=== PATIENT | male | born 1955 | race Caucasian/White ===

== ENCOUNTER 2016-05-14 12:22 | Emergency (ER) | payer MEDICARE, MEDICAID ==
[2016-05-14] MEDS ORDERED: Aspirin Low Dose CHEW TAB* 81 MG PO ONE (13:09)
[2016-05-14 13:22] LABS: Hematocrit 44 % (42-52); Hemoglobin 14.6 g/dl (14.0-18.0); Mean Corpuscular HGB Conc 34 g/dl (31-36); Mean Corpuscular Hemoglobin 31 pg (27-31); Mean Corpuscular Volume 92 fL (80-94); Mean Platelet Volume 8 um3 (7.4-10.4); Red Blood Count 4.71 10^6/ul (4.0-5.4); Red Cell Distribution Width 13 % (10.5-15); White Blood Count 10.4 10^3/ul (3.5-10.8)
[2016-05-14] MEDS ORDERED: traMADol TAB* 50 MG PO ONE (13:26)
[2016-05-14 13:35] LABS: Albumin 4.2 g/dL (3.2-5.2); BUN/Creatinine Ratio 9.5 (8-20); Calcium 9.7 mg/dL (8.6-10.3); EGFR African American 120.3 (>60); EGFR Non-African American 93.5 (>60); Globulin 3.3 g/dL (2-4); Magnesium 2.2 mg/dL (1.9-2.7); Potassium 3.6 mmol/L (3.5-5.0); Total Bilirubin 0.5 mg/dL (0.2-1.0); Total Protein 7.5 g/dL (6.4-8.9)
[2016-05-14 13:37] LABS: Troponin I 0.01 ng/mL (<0.04)
--- NOTE | 2016-05-14 13:45 | RAD ---
HISTORY: Pneumonia, CHF COMPARISONS: January 26, 2010 VIEWS:1: Single frontal portable view of the chest at 1:15 PM FINDINGS: LINES AND TUBES: None. CARDIOMEDIASTINAL SILHOUETTE: The cardiomediastinal silhouette is normal for portable technique. PLEURA: The costophrenic angles are sharp. No pleural abnormalities are noted. LUNG PARENCHYMA: The lungs are clear. ABDOMEN: The upper abdomen is clear. There is no subphrenic gas. BONES AND SOFT TISSUES: Degenerative changes are noted along the spine. IMPRESSION: NO ACTIVE CARDIOPULMONARY DISEASE.
[2016-05-14 14:12] LABS: TSH (Thyroid Stimulating Horm) 0.32 mcIU/mL (0.34-5.60)
[2016-05-14 14:55] VITALS: BP 141/81
--- NOTE | 2016-05-16 23:27 | ED ---
Arleen Yoon Erika, scribed for Cory García MD on 05/14/16 at 1439 . HPI Chest Pain - HPI Summary HPI Summary: Patient is a 60-year-old male presenting to the ED with a CC of chest discomfort. Patient reports that for the past month, he has had chest discomfort that has been worsening. Patient reports "convulsions" last night. Today, when the patient woke up, he had a sharp pain in his left anterior chest. Pain is aggravated by breathing and palpation. Now, the severity has decreased and he describes is at a discomfort. Patient states he does not take any medication, and was seen by his PCP Jerman Mane in February 2016, and was scheduled for another appointment in March 2016 but did not go. He cannot state why he needed two appointments. Pt states he would like to take HTN medication, and that last Tuesday his BP was 180/100. He does not take daily aspirin. - History of Current Complaint Chief Complaint: EDDysrhythmPalp Time Seen by Provider: 05/14/16 13:12 Hx Obtained From: Patient Onset/Duration: Started Weeks Ago - 1 month, Atraumatic, Still Present Timing: Intermittent Initial Severity: Moderate Current Severity: Mild Pain Intensity: 1 Pain Scale Used: 0-10 Numeric Chest Pain Location: Left Anterior Chest Pain Radiates: No Character: Sharp/Stabbing Aggravating Factor(s): Deep Breaths, Other: - palpation - Allergy/Home Medications Allergies/Adverse Reactions: Allergies Allergy/AdvReac Type Severity Reaction Status Date / Time No Known Allergies Allergy Verified 06/08/12 09:34 PMH/Surg Hx/FS Hx/Imm Hx Endocrine/Hematology History: Denies: Hx Diabetes, Hx Thyroid Disease Respiratory History: Denies: Hx Asthma, Hx Chronic Obstructive Pulmonary Disease (COPD) GI History: Denies: Hx Ulcer - Surgical History Surgery Procedure, Year, and Place: hernia repair 1994. facial 2008 Infectious Disease History: Denies: Hx Hepatitis, Hx Human Immunodeficiency Virus (HIV), Traveled Outside the [place] in Last 30 Days - Family History Known Family History: Positive: Other - [place] - Social History Occupation: Disabled Lives: Alone Hx Substance Use: No Substance Use Type: Reports: None Review of Systems Constitutional: Other - "convulsions" last night Negative: Fever Positive: Chest Pain All Other Systems Reviewed And Are Negative: Yes Physical Exam Triage Information Reviewed: Yes Vital Signs On Initial Exam: Initial Vitals Temp Pulse Resp BP Pulse Ox 98.4 F 80 20 106/62 98 05/14/16 13:01 05/14/16 13:01 05/14/16 13:01 05/14/16 13:01 05/14/16 13:01 Vital Signs Reviewed: Yes Appearance: Positive: Well-Appearing, No Pain Distress Skin: Positive: Warm, Skin Color Reflects Adequate Perfusion, Dry Head/Face: Positive: Normal Head/Face Inspection Eyes: Positive: Normal ENT: Positive: Normal ENT inspection Neck: Positive: Supple, Nontender Respiratory/Lung Sounds: Positive: Clear to Auscultation, Breath Sounds Present Cardiovascular: Positive: RRR Abdomen Description: Positive: Nontender, Soft Bowel Sounds: Positive: Present Musculoskeletal: Positive: Other - Mild tenderness in his lower left anterior chest wall Neurological: Positive: Normal Psychiatric: Positive: Affect/Mood Appropriate Diagnostics - Vital Signs Vital Signs Temp Pulse Resp BP Pulse Ox 05/14/16 13:01 98.4 F 80 20 106/62 98 - Laboratory Lab Results: Lab Results 05/14/16 05/14/16 05/14/16 Range/Units 13:10 13:10 13:10 WBC 10.4 (3.5-10.8) 10^3/ul RBC 4.71 (4.0-5.4) 10^6/ul Hgb 14.6 (14.0-18.0) g/dl Hct 44 (42-52) % MCV 92 (80-94) fL MCH 31 (27-31) pg MCHC 34 (31-36) g/dl RDW 13 (10.5-15) % Plt Count 286 (150-450) 10^3/ul MPV 8 (7.4-10.4) um3 Neut % (Auto) 60.7 (38-83) % Lymph % (Auto) 25.6 (25-47) % Fallon % (Auto) 10.8 H (1-9) % Eos % (Auto) 1.8 (0-6) % Baso % (Auto) 1.1 (0-2) % Absolute Neuts (auto) 6.3 (1.5-7.7) 10^3/ul Absolute Lymphs (auto) 2.7 (1.0-4.8) 10^3/ul Absolute Monos (auto) 1.1 H (0-0.8) 10^3/ul Absolute Eos (auto) 0.2 (0-0.6) 10^3/ul Absolute Basos (auto) 0.1 (0-0.2) 10^3/ul Absolute Nucleated RBC 0 10^3/ul Nucleated RBC % 0 Sodium 137 (133-145) mmol/L Potassium 3.6 (3.5-5.0) mmol/L Chloride 105 (101-111) mmol/L Carbon Dioxide 24 (22-32) mmol/L Anion Gap 8 (2-11) mmol/L BUN 8 (6-24) mg/dL Creatinine 0.84 (0.67-1.17) mg/dL Est GFR ( Amer) 120.3 (>60) Est GFR (Non-Af Amer) 93.5 (>60) BUN/Creatinine Ratio 9.5 (8-20) Glucose 80 (70-100) mg/dL Lactic Acid 1.9 (0.5-2.0) mmol/L Calcium 9.7 (8.6-10.3) mg/dL Magnesium 2.2 (1.9-2.7) mg/dL Total Bilirubin 0.50 (0.2-1.0) mg/dL AST 25 (13-39) U/L ALT 40 (7-52) U/L Alkaline Phosphatase 70 (34-104) U/L Troponin I 0.01 (<0.04) ng/mL B-Natriuretic Peptide ( - 100) pg/mL Total Protein 7.5 (6.4-8.9) g/dL Albumin 4.2 (3.2-5.2) g/dL Globulin 3.3 (2-4) g/dL Albumin/Globulin Ratio 1.3 (1-3) TSH 0.32 L (0.34-5.60) mcIU/mL 05/14/16 Range/Units 13:10 WBC (3.5-10.8) 10^3/ul RBC (4.0-5.4) 10^6/ul Hgb (14.0-18.0) g/dl Hct (42-52) % MCV (80-94) fL MCH (27-31) pg MCHC (31-36) g/dl RDW (10.5-15) % Plt Count (150-450) 10^3/ul MPV (7.4-10.4) um3 Neut % (Auto) (38-83) % Lymph % (Auto) (25-47) % Fallon % (Auto) (1-9) % Eos % (Auto) (0-6) % Baso % (Auto) (0-2) % Absolute Neuts (auto) (1.5-7.7) 10^3/ul Absolute Lymphs (auto) (1.0-4.8) 10^3/ul Absolute Monos (auto) (0-0.8) 10^3/ul Absolute Eos (auto) (0-0.6) 10^3/ul Absolute Basos (auto) (0-0.2) 10^3/ul Absolute Nucleated RBC 10^3/ul Nucleated RBC % Sodium (133-145) mmol/L Potassium (3.5-5.0) mmol/L Chloride (101-111) mmol/L Carbon Dioxide (22-32) mmol/L Anion Gap (2-11) mmol/L BUN (6-24) mg/dL Creatinine (0.67-1.17) mg/dL Est GFR ( Amer) (>60) Est GFR (Non-Af Amer) (>60) BUN/Creatinine Ratio (8-20) Glucose (70-100) mg/dL Lactic Acid (0.5-2.0) mmol/L Calcium (8.6-10.3) mg/dL Magnesium (1.9-2.7) mg/dL Total Bilirubin (0.2-1.0) mg/dL AST (13-39) U/L ALT (7-52) U/L Alkaline Phosphatase (34-104) U/L Troponin I (<0.04) ng/mL B-Natriuretic Peptide 34 ( - 100) pg/mL Total Protein (6.4-8.9) g/dL Albumin (3.2-5.2) g/dL Globulin (2-4) g/dL Albumin/Globulin Ratio (1-3) TSH (0.34-5.60) mcIU/mL Result Diagrams: 05/14/16 13:10 05/14/16 13:10 Lab Statement: Any lab studies that have been ordered have been reviewed, and results considered in the medical decision making process. - Radiology CXR Radiology Interpretation Completed By: Radiologist - IMPRESSION: NO ACTIVE CARDIOPULMONARY DISEASE. - EKG 12:24 Cardiac Rate: NL - at 79 bpm EKG Rhythm: Sinus Rhythm Re-Evaluation - Re-Evaluation First Eval Re-Evaluation Time: 15:33 Comment: Patient declines staying for repeat troponin at 16:00 Chest Pain Course/Dx - Course Course Of Treatment: Mr. Saavedra presented with a chest pain that seemed musculoskeletal. His W/U was partially complete when he insisted on leaving. His labs returned normal and he would not stay for a second trop. - Diagnoses Provider Diagnoses: Chest pain Discharge - Discharge Plan Condition: Stable Disposition: HOME Patient Education Materials: Chest Pain (ED) Referrals: Jerman Mane NP [Primary Care Provider] - 2 Days The documentation as recorded by the Arleen cox Erika accurately reflects the service I personally performed and the decisions made by me, Cory García MD.
== END 2016-05-14 15:42 | disposition home or self-care (01) ==
LOC: ED 12:22
DX: R07.9 Chest pain, unspecified (principal); I10 Essential (primary) hypertension
CPT/HCPCS: 36415; 71010; 80053; 83605; 83735; 83880; 84443; 84484; 85025; 93005; 99283; A9270-GY

== ENCOUNTER 2016-05-18 08:26 | Emergency (ER) | payer MEDICARE, MEDICAID ==
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
[2016-05-18] MEDS ORDERED: Ibuprofen TAB* 600 MG PO ONE (09:50)
[2016-05-18] MEDS ORDERED: Tetanus-Diphtheria* SYRINGE IM ONE (09:56)
[2016-05-18] MEDS ORDERED: Amoxicillin/Clavulanate TAB* 875 MG PO ONE (10:18)
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
[2016-05-18 10:53] VITALS: BP 148/92
== END 2016-05-18 10:52 | disposition home or self-care (01) ==
LOC: ED 08:26
DX: S01.91XA Laceration without foreign body of unspecified part of head, initial encounter (principal); S06.0X9A Concussion with loss of consciousness of unspecified duration, initial encounter; J32.9 Chronic sinusitis, unspecified; S09.90XA Unspecified injury of head, initial encounter; V49.9XXA Car occupant (driver) (passenger) injured in unspecified traffic accident, initial encounter; Y93.9 Activity, unspecified; Y92.9 Unspecified place or not applicable; Y99.9 Unspecified external cause status
CPT/HCPCS: 12002; 70450; 70486; 72125; 90714; 96372; 99282; A9270-GY

== ENCOUNTER → 2017-02-23 10:17 | Emergency (ER) | payer MEDICARE, MEDICAID ==
[~2017-02-23 10:17] MED LIST: HYDROcodone/ACETAMIN 5-325 MG* 1 TAB PO ONE
[2017-02-23 10:23] VITALS: BP 154/92
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
--- NOTE | 2017-02-23 13:09 | ED ---
Lower Extremity - HPI Summary HPI Summary: Patient presents to the ED with CC of left ankle pain s/p fall with inversion to the ankle. 01/04 pain. + ecchymosis and swelling. Patient fell yesterday in the mud and inverted his ankle. Denies other injuries. States ROM if limited and he is unable to ambulate. However, he also states he walked here. Pain has been on chronic opioids for "generalized pain" x 4 months but last dose last month. - History of Current Complaint Chief Complaint: EDExtremityLower Stated Complaint: LT ANKLE XRAY PER DR Time Seen by Provider: 02/23/17 10:26 Hx Obtained From: Patient Mechanism Of Injury: Twisted Onset of Pain: Immediate Onset/Duration: Hours Severity Initially: Severe Severity Currently: Severe Pain Intensity: 9 Pain Scale Used: 0-10 Numeric Character Of Pain: Aching Associated Signs And Symptoms: Positive: Swelling, Bruising Aggravating Factor(s): Standing, Ambulation Alleviating Factor(s): Nothing Able to Bear Weight: No - Risk Factors Gout Risk Factors: Male DVT Risk Factors: Negative Septic Arthritis Risk Factor: Negative - Allergies/Home Medications Allergies/Adverse Reactions: Allergies Allergy/AdvReac Type Severity Reaction Status Date / Time No Known Allergies Allergy Verified 06/08/12 09:34 PMH/Surg Hx/FS Hx/Imm Hx Previously Healthy: Yes Endocrine/Hematology History: Denies: Hx Diabetes, Hx Thyroid Disease Cardiovascular History: Reports: Hx Hypertension Respiratory History: Denies: Hx Asthma, Hx Chronic Obstructive Pulmonary Disease (COPD) GI History: Denies: Hx Ulcer - Surgical History Surgery Procedure, Year, and Place: hernia repair 1994. facial 2008 - Immunization History Hx Pertussis Vaccination: No Immunizations Up to Date: Unable to Obtain/Confirm Infectious Disease History: No Infectious Disease History: Denies: Hx Hepatitis, Hx Human Immunodeficiency Virus (HIV), Traveled Outside the [place] in Last 30 Days - Family History Known Family History: Positive: Other - [place] - Social History Occupation: Unemployed Lives: With Family Alcohol Use: Rare Alcohol Amount: 1 drink Hx Substance Use: No Substance Use Type: Reports: None Hx Tobacco Use: Yes Smoking Status (MU): Current Every Day Smoker Review of Systems Constitutional: Negative Negative: Fever, Chills, Fatigue Eyes: Negative Cardiovascular: Negative Respiratory: Negative Positive: Arthralgia Positive: Bruising Neurological: Negative All Other Systems Reviewed And Are Negative: Yes Physical Exam Triage Information Reviewed: Yes Vital Signs On Initial Exam: Initial Vitals Temp Pulse Resp BP Pulse Ox 97.9 F 93 18 154/92 98 02/23/17 10:20 02/23/17 10:20 02/23/17 10:20 02/23/17 10:20 02/23/17 10:20 Vital Signs Reviewed: Yes Appearance: Positive: Well-Appearing, Well-Nourished Skin: Positive: Warm, Skin Color Reflects Adequate Perfusion, Other - ecchymosis to the left lateral ankle Neck: Positive: Supple, No Lymphadenopathy Respiratory/Lung Sounds: Positive: Clear to Auscultation, Breath Sounds Present Cardiovascular: Positive: Normal, RRR, Pulses are Symmetrical in both Upper and Lower Extremities Musculoskeletal: Positive: Other - Thorough physical exam was performed, focusing on ankle special tests. Pain on palpation over lateral aspect and superior aspect of ankle over ATFL and deltoid ligaments. No pain on palpation over medial side. Due to patient pain around injury, physical exam was limited. Unable to perform anterior drawer test or talar tilt test d/t pain. Smith test negative. Limited ROM. Dorsiflexion, great toe extension and plantar flexion intact however limited. No pain on palpation over medial or lateral lower extremity. No pain with knee flexion. Pulses intact bilaterally. No temperature change or pallor noted bilaterally. Ecchymosis and swelling noted on lateral aspect. No lesion or disruption of skin is seen. Unable to bear weight. Neurological: Positive: Sensory/Motor Intact, Alert, Oriented to Person Place, Time, Speech Normal Psychiatric: Positive: Normal AVPU Assessment: Alert - Gratis Coma Scale Coma Scale Total: 15 Diagnostics - Vital Signs Vital Signs Temp Pulse Resp BP Pulse Ox 02/23/17 10:20 97.9 F 93 18 154/92 98 - Laboratory Lab Statement: Any lab studies that have been ordered have been reviewed, and results considered in the medical decision making process. Lower Extremity Course/Dx - Course Course Of Treatment: Based on [place] [facility] Rules, patient sent to imaging. Xray shows marquez 2 fracture with no additional findings. Soft tissue swelling noted over the lateral aspect of the ankle. Medial and lateral distal lower extremity without pain and x-rays show no widening of the ankle joint regarding low suspicion for Maisonneuve fx. Ankle was zach wrapped to patient comfort to allow for immobilization for this period of time. Crutches given. Patient given orthopedic follow up in 5-7 days. Encouraged Ibuprofen 600mg three times daily with meals for pain. Return precautions given. Educated patient regarding ankle injuries and healing time and the possibility of further evaluation and imaging as orthopedist sees fit. - Diagnoses Provider Diagnoses: Ankle fracture Discharge - Discharge Plan Condition: Stable Disposition: HOME Patient Education Materials: Ankle Fracture (ED) Referrals: Dat Martinez MD [Primary Care Provider] - Additional Instructions: Crutches for ambulation given. Ibuprofen 600mg three times daily with meals for pain. Follow up with orthopedic physician in 5-7 days. If numbness, tingling, decreased sensation, increased pain, temperature changes or pallor noted in toes, come back to ER immediately. Protect the area. For your comfort level, do not bear weight, pull or push until you can injury is somewhat healed. This may involve the need for immobilization or crutches for a period of time. Rest the involved area, but not too long. You may need to be off your injury for some time to allow for healing, however excessive immobilization of joints can lead to stiffness and delay healing time. Early mobilization is encouraged if it is pain-free. Ice. Not directly on the skin. Cover with a towel. Apply ice no more than 30 minutes at a time Compression: You may use and keep an zach wrap bandage over the injury to decrease swelling. Again, this should be limited and be taken off periodically to encourage early range of motion and mobilization.
== END | disposition home or self-care (01) ==
LOC: ED 10:17
DX: S82.892A Other fracture of left lower leg, initial encounter for closed fracture (principal); W19.XXXA Unspecified fall, initial encounter; Y93.9 Activity, unspecified; Y92.9 Unspecified place or not applicable; F17.210 Nicotine dependence, cigarettes, uncomplicated
CPT/HCPCS: 99282

== ENCOUNTER 2017-08-05 07:36 | Day surgery (SDC) | payer MEDICARE, MEDICAID ==
[~2017-08-05 07:36] MED LIST changes: +Buffered Lidocaine 0.9% SYRIN* 5 ML/SYR SYRINGE INTRADERM ONE; +Famotidine IV* 10 MG/ML 2 ML (20 mg) IV ONE; -HYDROcodone/ACETAMIN 5-325 MG* 1 TAB PO ONE
[2017-08-05] MEDS ORDERED: Midazolam* 1 MG/ML 5 ML VIAL (5 MG) ONE (09:08)
[2017-08-05] MEDS ORDERED: fentaNYL* 50 MCG/ML 2 ML VIAL (100 MCG VIAL) ONE (09:22)
[2017-08-05] MEDS ORDERED: Propofol* 10 MG/ML 20 ML BTL IV PUSH ONE (09:32)
[2017-08-05] MEDS ORDERED: Ondansetron INJ* 2 MG/ML VIAL IV PRN (09:41)
[2017-08-05] MEDS ORDERED: Naloxone* 0.4 MG/ML 1 ML VIAL IV PRN (09:41)
[2017-08-05] MEDS ORDERED: fentaNYL* 50 MCG/ML 2 ML VIAL (100 MCG VIAL) IV PRN (09:41)
[2017-08-05] MEDS ORDERED: Losartan TAB* 25 MG PO ONE (12:00)
[2017-08-05 12:09] VITALS: BP 159/106
--- NOTE | 2017-08-06 08:37 | PRO ---
CC: Dr. Martinez; Umu Carrasco DO GASTROENTEROLOGY OPERATIVE REPORT: DATE OF PROCEDURE: 08/05/17 OPERATIVE PROCEDURE: Colonoscopy to terminal ileum. PUMP ERECTOR HELPER: Umu Carrasco DO ANESTHESIA: Monitored anesthesia care. HISTORY OF PRESENT ILLNESS: Rodriguez is a pleasant 62-year-old gentleman, who presents today for his initial screening colonoscopy. He denies any personal gastrointestinal complaints or family history of colon cancer. PREOPERATIVE DIAGNOSES: 1. Low-risk screening colonoscopy. POSTOPERATIVE DIAGNOSES: 1. Normal-appearing terminal ileum. 2. Diverticulosis of the sigmoid colon, descending colon, transverse colon, ascending colon, and cecum. 3. Few 2-mm sessile rectal polyps with polypectomies. 4. Moderate sized non-bleeding internal hemorrhoids on retroflexion. 5. Fair colonoscopy preparation. RECOMMENDATION: 1. Timing of repeat colonoscopy will be determined upon review of biopsy results. DESCRIPTION OF PROCEDURE: Colonoscopy was explained in detail to the patient. The risks, benefits, complications, alternatives, and possibilities of missed lesions were explained and understood. Complications included but were not limited to reaction to anesthesia, aspiration, increased risk of bleeding and perforation. All questions were answered. The patient demonstrated understanding of the conversation. Informed consent was obtained. Next, the patient was brought to the endoscopy suite, placed in the left lateral recumbent position where blood pressure, cardiac, and oxygen monitors were applied. The patient was found to be a fit candidate for moderate anesthesia. After adequate IV sedation was achieved, a digital rectal exam was performed, which revealed normal sphincter tone, no palpable masses were appreciated. Next, the standard adult Olympus colonoscope was inserted through the rectum, maneuvered all the way to the cecal base where the ileocecal valve and the appendiceal orifice were identified and photographed. Next, the terminal ileum was intubated and was normal appearing. Subsequently, the colonoscope was withdrawn in a fashion that allowed adequate visualization of bowel. Overall the patient's colonoscopy preparation was fair. Aggressive irrigation and suctioning was performed in order to adequately visualize the mucosa. The overall submucosal vasculature pattern was normal appearing. There were [id number] mouthed diverticula scattered in the cecum, ascending colon, transverse colon, descending colon, and sigmoid colon. Entry into the rectum revealed a few 2-mm sessile polyps. These were all removed via jumbo cold forceps. Hemostasis was seen. On retroflexion, the patient had moderate size non-bleeding internal hemorrhoids. Air was then removed from the patient. Colonoscope was removed from the patient. The patient tolerated the procedure well. There were no immediate complications. After a period of observation, the patient was discharged home in stable condition. Thank you, Dr. Martinez, for allowing us to participate in the care of your patient. If you should have any further questions or concerns, please do not hesitate to contact us. [id number]/[facility] #: [id number] JULY
== END 2017-08-05 12:00 | disposition home or self-care (01) ==
LOC: OR 07:36
PROVIDERS: ATTEND Internal Medicine Gastroenterology
DX: Z12.11 Encounter for screening for malignant neoplasm of colon (principal); K62.1 Rectal polyp; K57.30 Diverticulosis of large intestine without perforation or abscess without bleeding; F20.9 Schizophrenia, unspecified; I10 Essential (primary) hypertension; F17.210 Nicotine dependence, cigarettes, uncomplicated; F11.11 Opioid abuse, in remission; M25.50 Pain in unspecified joint; F41.9 Anxiety disorder, unspecified; K64.8 Other hemorrhoids
CPT/HCPCS: 88305; A9270-GY; J2250; J2704; J3010

== ENCOUNTER 2017-10-21 16:07 | Emergency (ER) | payer MEDICARE, MEDICAID ==
[2017-10-21 16:56] VITALS: BP 134/87
--- NOTE | 2017-10-21 18:30 | UC ---
UC Dental HPI - History of Current Complaint Chief Complaint: UCDentalProblem Stated Complaint: DENTAL COMPLAINT Time Seen by Provider: 10/21/17 18:16 Pain Intensity: 9 - Allergies/Home Medications Allergies/Adverse Reactions: Allergies Allergy/AdvReac Type Severity Reaction Status Date / Time No Known Allergies Allergy Verified 10/21/17 16:57 PMH/Surg Hx/FS Hx/Imm Hx - Surgical History Surgical History: Yes Surgery Procedure, Year, and Place: Hernia repair 1994. Facial and jaw surgery 2008. Teeth Extraction - Family History Known Family History: Positive: Other - [place] - Social History Alcohol Use: Occasionally Alcohol Amount: 1 drink Substance Use Type: Prescribed Substance Use Comment - Amount & Last Used: patient denies, does have history of cocaine and heroine abuse Smoking Status (MU): Heavy Every Day Tobacco Smoker Amount Used/How Often: smoking since 22 years old, 1ppd Have You Smoked in the Last Year: Yes Physical Exam Vital Signs: Initial Vital Signs Temp 98.8 F 10/21/17 16:53 Pulse 82 10/21/17 16:53 Resp 12 10/21/17 16:53 BP 134/87 10/21/17 16:53 Pulse Ox 98 10/21/17 16:53 Discharge - Sign-Out/Discharge Documenting (check all that apply): Patient Departure - Discharge Plan Condition: Stable Disposition: HOME Prescriptions: Acetaminop/Codeine 30 MG TAB* [Tylenol/Codeine 30 MG TAB*] 1 tab PO Q6H PRN #12 tab MDD 4 PRN Reason: pain Chlorhexidine MW 0.12% 473ML* [Peridex Mouth Wash 0.12%*] 15 ml .SEE ORDER BID # 473 ml Clindamycin Cap(NF) [Clindamycin Cap 300 mg Cap(NF)] 300 mg PO Q6H #40 cap Patient Education Materials: Dental Abscess (ED) Referrals: Dat Martinez MD [Primary Care Provider] - 3 Days Additional Instructions: to have abscess rechecked in right upper side of mouth - Billing Disposition and Condition Condition: STABLE Disposition: Home
== END 2017-10-21 18:54 | disposition home or self-care (01) ==
LOC: UCEAST 16:07
DX: K08.89 Other specified disorders of teeth and supporting structures (principal); F17.210 Nicotine dependence, cigarettes, uncomplicated
CPT/HCPCS: 99212; G0463

== ENCOUNTER → 2018-01-25 09:56 | Emergency (ER) | payer MEDICARE, MEDICAID ==
[~2018-01-25 09:56] MED LIST changes: -Buffered Lidocaine 0.9% SYRIN* 5 ML/SYR SYRINGE INTRADERM ONE; -Famotidine IV* 10 MG/ML 2 ML (20 mg) IV ONE; +Iohexol 300* (CONTRAST) 10 ML SDV IV ONE; +Mouth Piece, Nicotine* 1 EACH CARTRIDGE INH PRN; +Nicotine Inhaler* 10 MG AMP INH ONE
[2018-01-25 12:34] LABS: ABS Basophils 0 10^3/ul (0-0.2); ABS Eosinophils 0.1 10^3/ul (0-0.6); ABS Monocytes 0.7 10^3/ul (0-0.8); ABS Neutrophils 6.2 10^3/ul (1.5-7.7); ABS Nucleated RBC 0 10^3/ul; Eosinophil % 1.4 % (0-6); Hematocrit 43 % (42-52); Hemoglobin 14.4 g/dl (14.0-18.0); Lymphocyte % 12.9 % (25-47); Mean Corpuscular HGB Conc 34 g/dl (31-36); Mean Corpuscular Hemoglobin 32 pg (27-31); Mean Corpuscular Volume 94 fL (80-94); Mean Platelet Volume 8.1 um3 (7.4-10.4); Nucleated Red Blood Cells % 0.2; Platelet Count 256 10^3/ul (150-450); Red Blood Count 4.57 10^6/ul (4.00-5.40); Red Cell Distribution Width 13 % (10.5-15); White Blood Count 8.1 10^3/ul (3.5-10.8)
[2018-01-25 12:55] LABS: EGFR Non-African American 71.8 (>60)
--- NOTE | 2018-01-25 14:23 | RAD ---
HISTORY: facial abscess, right COMPARISONS: May 18, 2016 TECHNIQUE: Multiple contiguous axial CT scans were obtained of the face with intravenous contrast, with coronal and sagittal multiplanar reformations. FINDINGS: BONES: The patient is status post internal fixation of the right anterior maxilla there are chronic appearing fractures of the maxilla bilaterally. There are chronic appearing nasal bone fractures. ORBITS: The globes are round. The optic nerves are symmetric. The extraocular musculature is normal. There is no post septal or intraconal inflammatory change. There is no retrobulbar hematoma. PARANASAL SINUSES: There is desiccation mucosal thickening of the right maxillary sinus, ethmoid air cells, maxillary sinuses bilaterally. BRAIN AND SOFT TISSUE: There is a peripherally enhancing loculated fluid collection that extends from the skin surface to the fixation plate along the right maxilla. There is associated subcutaneous emphysema. This measures approximately 1.8 x 0.8 x 1.3 cm in size. This is new when compared to the previous examination. There is a 0.5 cm nodule of the left thyroid. OTHER: None. IMPRESSION: THERE IS A PERIPHERALLY ENHANCING LOCULATED FLUID COLLECTION EXTENDING FROM THE SKIN TO THE RIGHT ANTERIOR MAXILLA ALONG THE FIXATION PLATE. THIS IS CONSISTENT WITH AN ABSCESS/SINUS TRACT. GIVEN THE CLOSE CONTIGUITY OF THE ABSCESS/SINUS TRACT TO THE BONE AND FIXATION PLATE, THIS IS CONCERNING FOR OSTEOMYELITIS AND/OR INFECTED PROSTHESIS
[2018-01-25 15:09] VITALS: BP 171/110
--- NOTE | 2018-01-25 15:16 | ED ---
Skin Complaint - HPI Summary HPI Summary: Pt. is a 62-year-old male who presents emergency department for a painful lump to his right cheek times one week. Patient states that he noticed a small red bump on his face about a week ago that is progressively got larger. Denies drainage. Denies fever, chills, nausea, vomiting. Past medical history of psychiatric disorders. Past medical history of facial fractures with internal fixation. Area is tender and touching it makes symptoms worse. Rest makes symptoms better. Denies drug use. - History of Current Complaint Chief Complaint: EDRashSkinAbscess Time Seen by Provider: 01/25/18 11:52 Stated Complaint: FACIAL SWELLING Hx Obtained From: Patient Pain Intensity: 10 - Allergy/Home Medications Allergies/Adverse Reactions: Allergies Allergy/AdvReac Type Severity Reaction Status Date / Time No Known Allergies Allergy Verified 01/25/18 10:26 PMH/Surg Hx/FS Hx/Imm Hx Previously Healthy: Yes Endocrine/Hematology History: Denies: Hx Diabetes, Hx Thyroid Disease Cardiovascular History: Reports: Hx Hypertension Denies: Other Cardiovascular Problems/Disorders Respiratory History: Denies: Hx Asthma, Hx Chronic Obstructive Pulmonary Disease (COPD), Other Respiratory Problems/Disorders GI History: Reports: Other GI Disorders - colonscopy for screening Denies: Hx Ulcer History: Denies: Hx Renal Disease, Other Problems/Disorders Musculoskeletal History: 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 Facial and jaw surgery 2008. Teeth Extraction Hx Anesthesia Reactions: No Infectious Disease History: No Infectious Disease History: Denies: Hx Hepatitis, Hx Human Immunodeficiency Virus (HIV), Traveled Outside the US in Last 30 Days - Family History Known Family History: Positive: Other - [place] - Social History Occupation: Disabled Lives: Alone Alcohol Use: Weekly Alcohol Amount: 2-3 times weekly Hx Substance Use: No Substance Use Type: Reports: Marijuana Substance Use Comment - Amount & Last Used: patient denies, does have history of cocaine and heroine abuse Hx Tobacco Use: Yes Smoking Status (MU): Heavy Every Day Tobacco Smoker Amount Used/How Often: smoking since 22 years old, 1ppd Have You Smoked in the Last Year: Yes Review of Systems Constitutional: Negative Negative: Fever, Chills Eyes: Negative ENT: Negative Cardiovascular: Negative Respiratory: Negative Gastrointestinal: Negative Negative: Vomiting, Nausea Positive: Other - Facial swelling and pain Neurological: Negative All Other Systems Reviewed And Are Negative: Yes Physical Exam Triage Information Reviewed: Yes Vital Signs On Initial Exam: Initial Vitals Temp Pulse Resp BP Pulse Ox 98.1 F 102 16 178/97 94 01/25/18 10:24 01/25/18 10:24 01/25/18 10:24 01/25/18 10:24 01/25/18 10:24 Vital Signs Reviewed: Yes Appearance: Positive: No Pain Distress - Pt. standing in room, very anxious. Nontoxic appearing. Skin: Positive: Warm, Dry Head/Face: Positive: Other - Roughly 3cm area of induration noted over the right maxillary region. Area is scabbed over. No drainage. No surrouding erythema. Eyes: Positive: Normal, EOMI, ALAN, Conjunctiva Clear Neck: Positive: Supple, Nontender, No Lymphadenopathy. Negative: Nuchal Rigidity Neurological: Positive: Normal, CN Intact II-III Psychiatric: Positive: Affect/Mood Appropriate Diagnostics - Vital Signs Vital Signs Temp Pulse Resp BP Pulse Ox 01/25/18 10:24 98.1 F 102 16 178/97 94 - Laboratory Lab Results: Lab Results 01/25/18 01/25/18 Range/Units 12:18 12:18 WBC 8.1 (3.5-10.8) 10^3/ul RBC 4.57 (4.00-5.40) 10^6/ul Hgb 14.4 (14.0-18.0) g/dl Hct 43 (42-52) % MCV 94 (80-94) fL MCH 32 H (27-31) pg MCHC 34 (31-36) g/dl RDW 13 (10.5-15) % Plt Count 256 (150-450) 10^3/ul MPV 8.1 (7.4-10.4) um3 Neut % (Auto) 77.0 (38-83) % Lymph % (Auto) 12.9 L (25-47) % [place] % (Auto) 8.3 H (0-7) % Eos % (Auto) 1.4 (0-6) % Baso % (Auto) 0.4 (0-2) % Absolute Neuts (auto) 6.2 (1.5-7.7) 10^3/ul Absolute Lymphs (auto) 1.0 (1.0-4.8) 10^3/ul Absolute Monos (auto) 0.7 (0-0.8) 10^3/ul Absolute Eos (auto) 0.1 (0-0.6) 10^3/ul Absolute Basos (auto) 0 (0-0.2) 10^3/ul Absolute Nucleated RBC 0 10^3/ul Nucleated RBC % 0.2 Sodium 141 (135-145) mmol/L Potassium 4.7 (3.5-5.0) mmol/L Chloride 108 (101-111) mmol/L Carbon Dioxide 25 (22-32) mmol/L Anion Gap 8 (2-11) mmol/L BUN 11 (6-24) mg/dL Creatinine 1.05 (0.67-1.17) mg/dL Est GFR ( Amer) 86.9 (>60) Est GFR (Non-Af Amer) 71.8 (>60) BUN/Creatinine Ratio 10.5 (8-20) Glucose 105 H (70-100) mg/dL Calcium 9.9 (8.6-10.3) mg/dL Total Bilirubin 0.70 (0.2-1.0) mg/dL AST 28 (13-39) U/L ALT 32 (7-52) U/L Alkaline Phosphatase 109 H (34-104) U/L Total Protein 7.8 (6.4-8.9) g/dL Albumin 4.4 (3.2-5.2) g/dL Globulin 3.4 (2-4) g/dL Albumin/Globulin Ratio 1.3 (1-3) Result Diagrams: 01/25/18 12:18 01/25/18 12:18 Lab Statement: Any lab studies that have been ordered have been reviewed, and results considered in the medical decision making process. Course/Dx - Course Course Of Treatment: Presenting with probable abscess to face. He is afebrile with stable vital signs. Blood work and CT scan were ordered for further evaluation. CT read per radiology: IMPRESSION: THERE IS A PERIPHERALLY ENHANCING LOCULATED FLUID COLLECTION EXTENDING FROM THE SKIN TO. THE RIGHT ANTERIOR MAXILLA ALONG THE FIXATION PLATE. THIS IS CONSISTENT WITH AN. ABSCESS/ SINUS TRACT. GIVEN THE CLOSE CONTIGUITY OF THE ABSCESS/SINUS TRACT TO THE BONE AND. FIXATION PLATE, THIS IS CONCERNING FOR OSTEOMYELITIS AND/OR INFECTED PROSTHESIS. I spoke with ENT, Dr. Waters, who reviewed the CT scan. He is concerned for possible hardware infection. He is concerned that we do not have the equipment here for surgical intervention and recommends transfer to have [facility]. Discussed with patient and he will need to be transferred with IV antibiotics and probable surgery. Patient became very anxious and states that he cannot stay in the hospital at this time. Patient did consider admission but feels as though he needs to go home to get his affairs and order. Patient has decision making capacity and wishes to sign out AGAINST MEDICAL ADVICE. I strongly advised patient that this infection can lead to and disability he is aware of this risk. Advised patient to return to the ER as soon as possible for IV antibiotics and transfer for possible surgery. Patient states to return to the ER tomorrow. Signed out AGAINST MEDICAL ADVICE. - Differential Diagnoses - Skin Complaint Differential Diagnoses: Abscess, Cellulitis - Diagnoses Provider Diagnoses: Facial abscess, Osteomyelitis Discharge - Sign-Out/Discharge Documenting (check all that apply): Patient Departure - Discharge Plan Condition: Critical Disposition: AGAINST MEDICAL ADVICE Prescriptions: Clindamycin HCl 300 mg PO Q6H #40 capsule Referrals: Mariela Romano [Medical Doctor] - Dat Martinez MD [Primary Care Provider] - Additional Instructions: YOU ARE LEAVING THE ER AGAINST MEDICAL ADVISE YOU HAVE A VERY SERIOUS INFECTION THAT NEEDS IV ANTIBIOTICS AND POSSIBLY SURGERY THIS INFECTION CAN SPREAD TO YOUR BLOOD AND KILL YOU I SPOKE WITH ENT, DR. WATERS, WHO RECOMMENDS TRANSFER TO A [facility] FOR A SPECIALIST PLEASE RETURN TO ER [facility] - Billing Disposition and Condition Condition: CRITICAL Disposition: Against Medical Advice
== END | disposition left against medical advice (07) ==
LOC: ED 09:56
DX: L02.01 Cutaneous abscess of face (principal); M86.9 Osteomyelitis, unspecified; F17.200 Nicotine dependence, unspecified, uncomplicated
CPT/HCPCS: 36415; 70487; 80053; 85025; 99282; A9270-GY; Q9967

== ENCOUNTER 2018-01-26 09:15 | Emergency (ER) | payer MEDICARE, MEDICAID ==
[2018-01-26 09:27] VITALS: BP 137/113
[2018-01-26] MEDS ORDERED: Neomycin/Polym/Bacit TOP OINT* 15 GM TOPICAL ONE (09:51)
--- NOTE | 2018-01-26 17:50 | ED ---
Skin Complaint - HPI Summary HPI Summary: Pt. is a 62 y.o male who presents to the ER requesting a wound dressing. Pt. was seen in the ER yesterday by myself for a facial infection and possible osteomyelitis and hardware infection. Pt. signed out AMA. Pt. states yesterday that he would return to ER today for transfer to higher level of care and IV antibx. Pt. state that he cannot be transferred today because he gets money tomorrow and has to go to the bank to pay his rent that is due. Pt. states that he just came in to have wound dressed. Pt. states he has been taking antibx that was rx yesterday and states that he is starting to feel better. He denies fever, chills. Symptoms are moderate in severity. Touching affected area makes sxs worse. Nothing makes sxs better. - History of Current Complaint Chief Complaint: EDGeneral Time Seen by Provider: 01/26/18 09:38 Stated Complaint: FACIAL INJURY Hx Obtained From: Patient Pain Intensity: 5 - Allergy/Home Medications Allergies/Adverse Reactions: Allergies Allergy/AdvReac Type Severity Reaction Status Date / Time No Known Allergies Allergy Verified 01/26/18 09:27 PMH/Surg Hx/FS Hx/Imm Hx Previously Healthy: Yes Endocrine/Hematology History: Denies: Hx Diabetes, Hx Thyroid Disease Cardiovascular History: Reports: Hx Hypertension Denies: Other Cardiovascular Problems/Disorders Respiratory History: Denies: Hx Asthma, Hx Chronic Obstructive Pulmonary Disease (COPD), Other Respiratory Problems/Disorders GI History: Reports: Other GI Disorders - colonscopy for screening Denies: Hx Ulcer History: Denies: Hx Renal Disease, Other Problems/Disorders Musculoskeletal History: 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 Facial and jaw surgery 2008. Teeth Extraction Hx Anesthesia Reactions: No Infectious Disease History: No Infectious Disease History: Denies: Hx Hepatitis, Hx Human Immunodeficiency Virus (HIV), Traveled Outside the [place] in Last 30 Days - Family History Known Family History: Positive: Other - [place] - Social History Occupation: Disabled Lives: Alone Alcohol Use: Weekly Alcohol Amount: 2-3 times weekly Hx Substance Use: No Substance Use Type: Reports: Marijuana Substance Use Comment - Amount & Last Used: patient denies, does have history of cocaine and heroine abuse Hx Tobacco Use: Yes Smoking Status (MU): Heavy Every Day Tobacco Smoker Amount Used/How Often: smoking since 22 years old, 1ppd Have You Smoked in the Last Year: Yes Review of Systems Constitutional: Negative Positive: Other - facial abscess All Other Systems Reviewed And Are Negative: Yes Physical Exam Triage Information Reviewed: Yes Vital Signs On Initial Exam: Initial Vitals Temp Pulse Resp BP Pulse Ox 97.4 F 110 18 137/113 98 01/26/18 09:21 01/26/18 09:21 01/26/18 09:21 01/26/18 09:21 01/26/18 09:21 Vital Signs Reviewed: Yes Appearance: Positive: Well-Appearing - Pt. sitting on bed in NAD. Very talkative Skin: Positive: Warm, Dry Head/Face: Positive: Other - Induration with overlying wound noted to the left cheek Eyes: Positive: Normal, EOMI Neck: Positive: Supple Neurological: Positive: Normal, CN Intact II-III Psychiatric: Positive: Anxious Diagnostics - Vital Signs Vital Signs Temp Pulse Resp BP Pulse Ox 01/26/18 09:21 97.4 F 110 18 137/113 98 - Laboratory Lab Statement: Any lab studies that have been ordered have been reviewed, and results considered in the medical decision making process. Course/Dx - Course Course Of Treatment: Pt. again presenting with facial abscess and infection. He is afebrile and nontoxic appearing. Pt. states he just came in for a wound dressing. It is strongly recommended to pt. to be transferred to higher level of care for iv antibx and possible surgery for likely osteo and infected hardware in face. Pt. states he understands the severity of infection but states he needs to wait till tomorrow after he gets his rent paid. Even offered pt. the possibility at trying to admit to [facility] for at least iv antibx but pt. declines. Pt. has decision making compacity and wishes to sign out AMA again. Pt. is well aware infection could lead to permenant disability and . Pt. states he will return to tomorrow for further care. - Differential Diagnoses - Skin Complaint Differential Diagnoses: Abscess, Cellulitis - Diagnoses Provider Diagnoses: Facial infection Discharge - Sign-Out/Discharge Documenting (check all that apply): Patient Departure - Discharge Plan Condition: Stable Disposition: AGAINST MEDICAL ADVICE Referrals: Dat Martinez MD [Primary Care Provider] - Additional Instructions: It was recommended you be transferred to a higher level of care to treat your facial infection You are signing out of the ER AGAINST MEDICAL ADVISE Please return to ER as soon as possible - Billing Disposition and Condition Condition: STABLE Disposition: Against Medical Advice
== END 2018-01-26 10:46 | disposition left against medical advice (07) ==
LOC: ED 09:15
DX: L02.01 Cutaneous abscess of face (principal); F17.210 Nicotine dependence, cigarettes, uncomplicated
CPT/HCPCS: 99283; A9270-GY

== ENCOUNTER 2018-01-28 08:43 | Emergency (ER) | payer MEDICARE, MEDICAID ==
--- NOTE | 2018-01-28 09:33 | ED ---
Throat Pain/Nasal Congestion - HPI Summary HPI Summary: Patient is a 62yo M who is presents to the ED for the second time in 3 days with a right cheek abscess. He states he is unsure how he obtained the abscess. He checks in today with a request for a bandage dressing change and is requesting a ride to [employer] [place] for surgery for this. He was told several days ago that he would need surgery for this as he has a piece of metal in his tooth that may be because of the issue. However he has been on clindamycin the past 2 days with significant improvement of swelling and abscess drainage. He denies any fevers, sweats, chills. He states he has been feeling otherwise well and is endorsing significant improvement. - History of Current Complaint Chief Complaint: EDGeneral Time Seen by Provider: 01/28/18 08:59 Hx Obtained From: Patient Onset/Duration: Sudden Onset Severity: Mild Associated Signs And Symptoms: Positive: Negative - Epiglottits Risk Factors Epiglottis Risk Factors: Negative - Allergies/Home Medications Allergies/Adverse Reactions: Allergies Allergy/AdvReac Type Severity Reaction Status Date / Time No Known Allergies Allergy Verified 01/26/18 09:27 PMH/Surg Hx/FS Hx/Imm Hx Previously Healthy: Yes Endocrine/Hematology History: Denies: Hx Diabetes, Hx Thyroid Disease Cardiovascular History: Reports: Hx Hypertension Denies: Other Cardiovascular Problems/Disorders Respiratory History: Denies: Hx Asthma, Hx Chronic Obstructive Pulmonary Disease (COPD), Other Respiratory Problems/Disorders GI History: Reports: Other GI Disorders - colonscopy for screening Denies: Hx Ulcer History: Denies: Hx Renal Disease, Other Problems/Disorders Musculoskeletal History: 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 Facial and jaw surgery 2008. 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 Hx Tobacco Use: Yes Smoking Status (MU): Heavy Every Day Tobacco Smoker Amount Used/How Often: smoking since 22 years old, 1ppd Have You Smoked in the Last Year: Yes Review of Systems Constitutional: Negative Negative: Fever, Chills, Fatigue, Skin Diaphoresis Negative: Dental Pain, Sore Throat, Ear Ache Negative: Palpitations, Chest Pain Negative: Shortness Of Breath, Cough Genitourinary: Negative Positive: no symptoms reported Negative: Arthralgia, Myalgia Positive: Other - R cheek abscess Neurological: Negative All Other Systems Reviewed And Are Negative: Yes Physical Exam Triage Information Reviewed: Yes Vital Signs On Initial Exam: Initial Vitals Temp Pulse Resp BP Pulse Ox 96.9 F 85 14 144/89 95 01/28/18 08:54 01/28/18 08:54 01/28/18 08:54 01/28/18 08:54 01/28/18 08:54 Vital Signs Reviewed: Yes Appearance: Positive: Well-Appearing, Well-Nourished Skin: Positive: Warm, Skin Color Reflects Adequate Perfusion, Other - R cheek abscess Head/Face: Positive: Normal Head/Face Inspection Eyes: Positive: EOMI, ALAN, Conjunctiva Clear Neck: Positive: Supple, No Lymphadenopathy Respiratory/Lung Sounds: Positive: Clear to Auscultation Cardiovascular: Positive: RRR, Pulses are Symmetrical in both Upper and Lower Extremities Musculoskeletal: Positive: Strength/ROM Intact Neurological: Positive: Speech Normal Psychiatric: Positive: Affect/Mood Appropriate AVPU Assessment: Alert Diagnostics - Vital Signs Vital Signs Temp Pulse Resp BP Pulse Ox 01/28/18 08:54 96.9 F 85 14 144/89 95 - Laboratory Lab Statement: Any lab studies that have been ordered have been reviewed, and results considered in the medical decision making process. EENT Course/Dx - Course Course Of Treatment: Patient is evaluated for right cheek abscess. The cheek abscess is approximately 3.5 cm in length and 4 cm in width with purulent drainage. No swelling visualized. No bleeding from the area. Patient is opening and closing jaw well. Denies any pain at this time. Denies any fevers , sweats, chills. Bandage is redressed and he will continue to take the clindamycin as prescribed. - Diagnoses Provider Diagnoses: Abscess, cheek Discharge - Sign-Out/Discharge Documenting (check all that apply): Patient Departure - Discharge Plan Condition: Stable Disposition: HOME Referrals: Dat Martinez MD [Medical Doctor] - Additional Instructions: Please continue to take your antibiotics as prescribed Continue warm compresses to the face Change bandage daily until oozing discontinues - Billing Disposition and Condition Condition: STABLE Disposition: Home
[2018-01-28 09:36] VITALS: BP 140/88
== END 2018-01-28 09:34 | disposition home or self-care (01) ==
LOC: ED 08:43
DX: L02.01 Cutaneous abscess of face (principal); F17.210 Nicotine dependence, cigarettes, uncomplicated
CPT/HCPCS: 99282

== ENCOUNTER 2018-03-01 10:19 | Day surgery (SDC) | payer MEDICARE, MEDICAID ==
[~2018-03-01 10:19] MED LIST changes: +Buffered Lidocaine 0.9% SYRIN* 5 ML/SYR SYRINGE INTRADERM ONE; +Famotidine IV* 10 MG/ML 2 ML (20 mg) IV ONE; -Iohexol 300* (CONTRAST) 10 ML SDV IV ONE; -Mouth Piece, Nicotine* 1 EACH CARTRIDGE INH PRN; -Nicotine Inhaler* 10 MG AMP INH ONE
[2018-03-01] MEDS ORDERED: Famotidine IV* 10 MG/ML 2 ML (20 mg) ONE (11:28)
[2018-03-01] MEDS ORDERED: Propofol* 10 MG/ML 20 ML BTL ONE (12:51)
[2018-03-01] MEDS ORDERED: Cisatracurium* 2 MG/ML MDV 5 ML ONE (12:51)
[2018-03-01] MEDS ORDERED: Dexamethasone IV* 4 MG/ML 1 ML (4 MG) ONE (12:51)
[2018-03-01] MEDS ORDERED: fentaNYL* 50 MCG/ML 2 ML VIAL (100 MCG VIAL) ONE (12:51)
[2018-03-01] MEDS ORDERED: Midazolam* 1 MG/ML 5 ML VIAL (5 MG) ONE (12:51)
[2018-03-01] MEDS ORDERED: Lidocaine 2% PF * 5 ML VIAL ONE (12:51)
[2018-03-01] MEDS ORDERED: Ondansetron INJ* 2 MG/ML VIAL ONE (12:51)
[2018-03-01] MEDS ORDERED: Oxymetazoline 0.05% NASAL SPR* 15 ML BTL ONE (13:04)
[2018-03-01] MEDS ORDERED: Triamcinolone Acetonide* 40 MG/ML 1 ML VIAL ONE (13:04)
[2018-03-01] MEDS ORDERED: Lidocaine 2% EPI 1:200000 MPF*10-20 ML VIAL ONE ×2 (13:05→13:54)
[2018-03-01] MEDS ORDERED: Gelfoam 12-7 ADSORBABL SPONGE* 1 EA SPONGE ONE ×2 (13:05→13:46)
[2018-03-01] MEDS ORDERED: Gelatin ADSORBABLE (OPHTH)* OPHTH.FILM ONE ×2 (13:05→13:46)
[2018-03-01] MEDS ORDERED: EPHEDrine (Pressors)* 50 MG/ML VIAL ONE (13:28)
[2018-03-01] MEDS ORDERED: fentaNYL* 50 MCG/ML 2 ML VIAL (100 MCG VIAL) IV PRN (13:47)
[2018-03-01] MEDS ORDERED: Naloxone* 0.4 MG/ML 1 ML VIAL IV PRN (13:47)
[2018-03-01] MEDS ORDERED: Ondansetron INJ* 2 MG/ML VIAL IV PRN (13:47)
[2018-03-01] MEDS ORDERED: oxyCODONE/Acetamin 5/325 MG* TAB PO PRN (13:47)
[2018-03-01] MEDS ORDERED: Neostigmine Methylsulfate* 1 MG/ML 10 ML VIAL (1 mg/ml) ONE (13:52)
[2018-03-01] MEDS ORDERED: Glycopyrrolate IV* 0.2 MG/ML 1 ML VIAL ONE (13:52)
[2018-03-01] MEDS ORDERED: Chlorhexidine MW 0.12% 473ML* STOCK BOTTLE * USE UNIT DOSE ONE (14:09)
[2018-03-01 16:11] VITALS: BP 147/96
--- NOTE | 2018-03-02 06:54 | OP ---
DATE OF OPERATION: 03/01/18 - [facility] DATE OF : 57 SURGEON: Wojciech Peguero MD PRE-OP DIAGNOSES: Chronic bilateral sinusitis and extrusion with discomfort of right hardware, prior maxillofacial fracture. POST-OP DIAGNOSES: Chronic bilateral sinusitis and extrusion with discomfort of right hardware, prior maxillofacial fracture. OPERATIVE PROCEDURE: 1. Bilateral video endoscopic maxillary antrostomy, removal of tissues bilaterally. 2. Bilateral anterior and posterior ethmoidectomy. 3. Removal of hardware, right maxillofacial internal fixators. INDICATIONS: This 62-year-old with chronic infection with fistulous drainage of the cheek, previous plate, partially extruded in the buccal mucosa causing a lot of discomfort, symptoms of chronic sinusitis with facial pain, drainage, not resolving with medical management including antibiotics. DESCRIPTION OF PROCEDURE: The patient was taken to the operating room. General anesthesia given and the patient was intubated. Nose decongested with Afrin placed pledgets. Subsequently 2% lidocaine with epinephrine was infiltrated in the mucosa of the uncinate process on both sides, in the ethmoid region, and the middle turbinate. Extensive polypoidal mucosa was noted. We turned our attention initially to the left side. The microshaver was used to remove the uncinate region and then subsequently the antrostomy was then enlarged. Copious amounts of purulent material were removed and hyperplastic mucosa was microshaved in the maxillary antrum. We then turned our attention to the ethmoidal bulla resecting it out using a microshaver laterally towards the lamina papyracea, through the ground lamella, towards the skull base, and then coursing superiorly into the nasofrontal duct area. When adequate resection was carried of the hyperplastic mucosa and ethmoidal cells, a small piece of Gelfilm and Gelfoam which were rolled up as a spacer between the middle turbinate and lateral nasal wall. This was infiltrated with Kenalog 0.5 mL. Next, we turned our attention to the right side. Here too, the uncinate process which was hyperplastic was resected out. The antrostomy again was identified and enlarged significantly. Copious amounts of polypoidal material were in the antrum with copious amounts of purulent material. This was suctioned out. A microshaver was used to remove the hyperplastic mucosa in the antrum. Next, we turned our attention to the ethmoidal bulla, resecting out the right-sided ethmoidal bulla, coursing posteriorly towards the ground lamella and then through the ground lamella to the posterior area and then coursing superiorly into the nasofrontal duct and laterally towards the lamina papyracea. Once adequate resection of the ethmoidal cells was carried out, both anterior and posterior, along both sides, the right side was packed with Gelfilm and Gelfoam as a spacer between the middle turbinate. This again was infiltrated with Kenalog. Now, we turned our attention to the oral cavity, 2% lidocaine with epinephrine was infiltrated in the mucosa of the right cheek. Previously noted hardware was identified. Small incision was made in the right cheek as well to the superior portion of the plate which was not easily accessible. The hardware was removed, the screws and the plate was removed. The wound was copiously irrigated. The wound was closed in a single layer. The patient was then awakened, extubated, and sent to recovery room in stable condition. Instrument and sponge count correct. Blood loss minimal. [id number]/[facility] #: [id number] [facility]
== END 2018-03-01 16:31 | disposition home or self-care (01) ==
LOC: OR 10:19
PROVIDERS: ATTEND Otolaryngology
DX: T84.69XA Infection and inflammatory reaction due to internal fixation device of other site, initial encounter (principal); Y84.8 Other medical procedures as the cause of abnormal reaction of the patient, or of later complication, without mention of misadventure at the time of the procedure; J32.0 Chronic maxillary sinusitis; F17.210 Nicotine dependence, cigarettes, uncomplicated
CPT/HCPCS: 88300; A9270-GY; J1100; J2250; J2405; J2704; J2710; J3010; J3301

== ENCOUNTER 2020-09-08 13:36 | Inpatient (IN) ==
[2020-09-08 14:13] LABS: Hematocrit 43 % (42-52); Hemoglobin 14.7 g/dL (14.0-18.0); Mean Corpuscular HGB Conc 34 g/dL (31-36); Mean Corpuscular Hemoglobin 31 pg (27-31); Mean Corpuscular Volume 91 fL (80-94); Mean Platelet Volume 8.4 fL (7.4-10.4); Platelet Count 260 10^3/uL (150-450); Red Blood Count 4.71 10^6 /uL (4.18-5.48); Red Cell Distribution Width 14 % (10-15); White Blood Count 6.4 10^3/uL (3.5-10.8)
[2020-09-08 14:14] LABS: ABS Eosinophils 0.2 10^3/ul (0-0.6); ABS Monocytes 0.8 10^3/ul (0-0.8); ABS Neutrophils 4.4 10^3/ul (1.5-7.7); Eosinophil % 3.6 %
[2020-09-08 14:52] LABS: ALT 34 U/L (7-52); Albumin 3.9 g/dL (3.2-5.2); Albumin/Globulin Ratio 1.2 (1-3); Alkaline Phosphatase 84 U/L (35-149); Blood Urea Nitrogen 11 mg/dL (6-24); C Reactive Protein 6.83 mg/L (<8.01); CO2 Carbon Dioxide 27 mmol/L (22-32); Calcium 9.2 mg/dL (8.6-10.3); Chloride 104 mmol/L (101-111); EGFR Non-African American 71.9 (>60); Globulin 3.2 g/dL (2-4); Glucose 106 mg/dL (70-100); Sodium 138 mmol/L (135-145); Total Protein 7.1 g/dL (6.4-8.9)
[2020-09-08 14:59] LABS: Anion Gap 7 mmol/L (2-11)
[2020-09-08 15:04] LABS: TSH Ultra Thyroid Stim Horm 0.22 mcIU/mL (0.34-5.60)
[2020-09-08 15:11] LABS: Alcohol, S < 10 mg/dL (<10)
[2020-09-08 15:41] LABS: Potassium Redraw 3.8 mmol/L (3.5-5.0)
[2020-09-08 16:07] LABS: RBC Morphology Normal (Normal)
[2020-09-08] MEDS ORDERED: Thiamine 100 MG/ML 2 ml VIAL (200 mg) IM ONE (16:54)
[2020-09-08] MEDS ORDERED: Lorazepam PYXIS KEY PRN (16:55)
[2020-09-08] MEDS ORDERED: LORazepam 2 mg VIAL 1 ml IV PUSH ONE (16:55)
[2020-09-08] MEDS ORDERED: Fluticasone NASAL SPRAY 50MCG 16 gm SPRAY BTL BOTH NARES PRN (16:56)
[2020-09-08] MEDS ORDERED: LORazepam 2 mg VIAL 1 ml IV PUSH SCH (17:00)
[2020-09-08 17:28] LABS: Free T4 1.26 ng/dL (0.61-1.12)
[2020-09-08] MEDS: Multivitamins/Minerals TAB PO SCH (18:30)
[2020-09-08] MEDS: Buprenorp/Nalox 8-2 MG FILM SL FILM SCH (21:14)
[2020-09-08] MEDS: Heparin 5000 UNITS/ML 1 mL VIAL SUBCUT SCH (21:32)
[2020-09-08] MEDS: Thiamine 100 MG/ML 2 ml VIAL 500 MG in NS 0.9% 250 ml 250 ML IV SCH (21:49)
[2020-09-09] MEDS: Heparin 5000 UNITS/ML 1 mL VIAL SUBCUT SCH ×2 (06:16→13:35)
[2020-09-09] MEDS: Buprenorp/Nalox 8-2 MG FILM SL FILM SCH ×3 (08:57→21:42)
[2020-09-09] MEDS: Multivitamins/Minerals TAB PO SCH (08:57)
[2020-09-09] MEDS: Nicotine PATCH 21 MG/24 HR PATCH TRANSDERM SCH (08:57)
[2020-09-09] MEDS: Thiamine 100 MG/ML 2 ml VIAL 500 MG in NS 0.9% 250 ml 250 ML IV SCH ×3 (08:58→21:50)
[2020-09-09 18:07] LABS: Urine Appearance Clear; Urine Bilirubin Negative (Negative); Urine Blood Negative (Negative); Urine Color Amber; Urine Glucose Negative (Negative); Urine Ketones Negative (Negative); Urine Nitrite Negative (Negative); Urine Protein Negative (Negative); Urine Specific Gravity 1.026 (1.002-1.030); Urine Urobilinogen Positive (Negative)
[2020-09-09 18:20] LABS: Urine Benzodiazepine Screen None Detected (None Detect); Urine Cannabinoids Screen Presumptive Positive (None Detect); Urine Opiates Screen None Detected (None Detect)
[2020-09-10 07:51] LABS: HDL Cholesterol 27.5 mg/dL
[2020-09-10] MEDS: Buprenorp/Nalox 8-2 MG FILM SL FILM SCH ×3 (09:34→19:53)
[2020-09-10] MEDS: Multivitamins/Minerals TAB PO SCH (09:35)
[2020-09-10] MEDS: Nicotine PATCH 21 MG/24 HR PATCH TRANSDERM SCH (09:35)
[2020-09-10] MEDS: Thiamine 100 MG/ML 2 ml VIAL 500 MG in NS 0.9% 250 ml 250 ML IV SCH ×2 (09:36→14:00)
[2020-09-10 13:29] LABS: Thyroid Peroxidase Antibodies 0.34 IU/mL (<9)
[2020-09-10] MEDS: Enoxaparin 40 MG/0.4 ML SYR SUBCUT SCH (14:00)
[2020-09-10] MEDS ORDERED: Iohexol 350 (CONTRAST) 500 ML MDV IV ONE (14:46)
[2020-09-11] MEDS: Multivitamins/Minerals TAB PO SCH (08:21)
[2020-09-11] MEDS: Nicotine PATCH 21 MG/24 HR PATCH TRANSDERM SCH (08:23)
[2020-09-11] MEDS: Buprenorp/Nalox 8-2 MG FILM SL FILM SCH ×4 (11:00→20:13)
[2020-09-11] MEDS: Enoxaparin 40 MG/0.4 ML SYR SUBCUT SCH (13:24)
[2020-09-11] MEDS: Ondansetron 4 mg VIAL 2 MG/ML 2 ml VIAL IV PRN (18:02)
[2020-09-12 06:45] LABS: ABS Eosinophils 0.8 10^3/ul (0-0.6); ABS Lymphocytes 1.5 10^3/ul (1.0-4.8); ABS Monocytes 0.9 10^3/ul (0-0.8); ABS Neutrophils 4.8 10^3/ul (1.5-7.7); Eosinophil % 9.9 %; Hematocrit 41 % (42-52); Hemoglobin 13.8 g/dL (14.0-18.0); Lymphocyte % 18.3 %; Mean Corpuscular HGB Conc 34 g/dL (31-36); Mean Corpuscular Hemoglobin 31 pg (27-31); Mean Corpuscular Volume 91 fL (80-94); Mean Platelet Volume 8.5 fL (7.4-10.4); Platelet Count 239 10^3/uL (150-450); Red Cell Distribution Width 14 % (10-15); White Blood Count 7.9 10^3/uL (3.5-10.8)
[2020-09-12 07:08] LABS: Calcium 9.8 mg/dL (8.6-10.3); EGFR African American 104.1 (>60); EGFR Non-African American 86.1 (>60); Potassium 4.1 mmol/L (3.5-5.0)
[2020-09-12] MEDS: Buprenorp/Nalox 8-2 MG FILM SL FILM SCH ×5 (08:46→20:26)
[2020-09-12] MEDS: Multivitamins/Minerals TAB PO SCH ×3 (08:46→11:06)
[2020-09-12] MEDS: Nicotine PATCH 21 MG/24 HR PATCH TRANSDERM SCH (08:46)
[2020-09-12] MEDS ORDERED: Lorazepam PYXIS KEY PRN (12:06)
[2020-09-12] MEDS ORDERED: LORazepam 2 mg VIAL 1 ml IV PUSH ONE (12:07)
[2020-09-12] MEDS: Enoxaparin 40 MG/0.4 ML SYR SUBCUT SCH (13:00)
[2020-09-13] MEDS: Nicotine PATCH 21 MG/24 HR PATCH TRANSDERM SCH (08:41)
[2020-09-13] MEDS: Buprenorp/Nalox 8-2 MG FILM SL FILM SCH ×3 (08:41→20:05)
[2020-09-13] MEDS: Multivitamins/Minerals TAB PO SCH (08:42)
[2020-09-13] MEDS: Enoxaparin 40 MG/0.4 ML SYR SUBCUT SCH (14:23)
[2020-09-14] MEDS: Buprenorp/Nalox 8-2 MG FILM SL FILM SCH ×3 (10:07→19:50)
[2020-09-14] MEDS: Multivitamins/Minerals TAB PO SCH (10:08)
[2020-09-14] MEDS: Nicotine PATCH 21 MG/24 HR PATCH TRANSDERM SCH (10:08)
[2020-09-14] MEDS: Enoxaparin 40 MG/0.4 ML SYR SUBCUT SCH (14:26)
[2020-09-15] MEDS: Buprenorp/Nalox 8-2 MG FILM SL FILM SCH ×3 (08:57→19:34)
[2020-09-15] MEDS: Nicotine PATCH 21 MG/24 HR PATCH TRANSDERM SCH (08:58)
[2020-09-15] MEDS: Multivitamins/Minerals TAB PO SCH (09:24)
[2020-09-15 10:27] LABS: ABS Basophils 0.1 10^3/ul (0-0.2); ABS Eosinophils 0.7 10^3/ul (0-0.6); ABS Lymphocytes 1.2 10^3/ul (1.0-4.8); ABS Monocytes 0.7 10^3/ul (0-0.8); ABS Neutrophils 4.8 10^3/ul (1.5-7.7); Hematocrit 43 % (42-52); Hemoglobin 14.3 g/dL (14.0-18.0); Lymphocyte % 15.7 %; Mean Corpuscular HGB Conc 33 g/dL (31-36); Mean Corpuscular Hemoglobin 30 pg (27-31); Mean Corpuscular Volume 91 fL (80-94); Nucleated Red Blood Cells % 0.1; Platelet Count 273 10^3/uL (150-450); Red Cell Distribution Width 13 % (10-15); White Blood Count 7.3 10^3/uL (3.5-10.8)
[2020-09-15 10:54] LABS: Calcium 10.2 mg/dL (8.6-10.3); EGFR African American 93.2 (>60)
[2020-09-15] MEDS: Enoxaparin 40 MG/0.4 ML SYR SUBCUT SCH (14:37)
[2020-09-16] MEDS: Buprenorp/Nalox 8-2 MG FILM SL FILM SCH ×3 (11:01→21:07)
[2020-09-16] MEDS: Multivitamins/Minerals TAB PO SCH (11:01)
[2020-09-16] MEDS: Nicotine PATCH 21 MG/24 HR PATCH TRANSDERM SCH (11:07)
[2020-09-16] MEDS: Ondansetron 4 mg VIAL 2 MG/ML 2 ml VIAL IV PRN (12:53)
[2020-09-16] MEDS ORDERED: Lorazepam PYXIS KEY PRN (15:04)
[2020-09-16] MEDS ORDERED: LORazepam 2 mg VIAL 1 ml IV PUSH ONE (15:04)
[2020-09-16] MEDS: Enoxaparin 40 MG/0.4 ML SYR SUBCUT SCH (16:19)
[2020-09-17] MEDS: Buprenorp/Nalox 8-2 MG FILM SL FILM SCH ×3 (10:56→20:01)
[2020-09-17] MEDS: Multivitamins/Minerals TAB PO SCH (10:58)
[2020-09-17] MEDS: Nicotine PATCH 21 MG/24 HR PATCH TRANSDERM SCH (11:03)
[2020-09-17] MEDS: Enoxaparin 40 MG/0.4 ML SYR SUBCUT SCH (14:08)
[2020-09-18 05:38] LABS: ABS Eosinophils 0.7 10^3/ul (0-0.6); ABS Lymphocytes 1.9 10^3/ul (1.0-4.8); ABS Monocytes 0.9 10^3/ul (0-0.8); Eosinophil % 11.4 %; Hematocrit 40 % (42-52); Hemoglobin 13.5 g/dL (14.0-18.0); Lymphocyte % 28.4 %; Mean Corpuscular HGB Conc 34 g/dL (31-36); Mean Corpuscular Hemoglobin 31 pg (27-31); Mean Corpuscular Volume 91 fL (80-94); Mean Platelet Volume 8.6 fL (7.4-10.4); Nucleated Red Blood Cells % 0.1; Platelet Count 253 10^3/uL (150-450); Red Blood Count 4.44 10^6 /uL (4.18-5.48); Red Cell Distribution Width 13 % (10-15); White Blood Count 6.6 10^3/uL (3.5-10.8)
[2020-09-18 05:57] LABS: Calcium 9.8 mg/dL (8.6-10.3); EGFR African American 112.9 (>60); EGFR Non-African American 93.3 (>60)
[2020-09-18] MEDS: Multivitamins/Minerals TAB PO SCH (08:28)
[2020-09-18] MEDS: Nicotine PATCH 21 MG/24 HR PATCH TRANSDERM SCH (08:30)
[2020-09-18] MEDS: Buprenorp/Nalox 8-2 MG FILM SL FILM SCH ×3 (08:31→20:18)
[2020-09-18] MEDS: Enoxaparin 40 MG/0.4 ML SYR SUBCUT SCH (14:00)
[2020-09-19] MEDS: Buprenorp/Nalox 8-2 MG FILM SL FILM SCH ×3 (09:25→20:00)
[2020-09-19] MEDS: Multivitamins/Minerals TAB PO SCH (09:26)
[2020-09-19] MEDS: Nicotine PATCH 21 MG/24 HR PATCH TRANSDERM SCH (09:29)
[2020-09-19] MEDS: Enoxaparin 40 MG/0.4 ML SYR SUBCUT SCH (13:47)
[2020-09-20] MEDS: Multivitamins/Minerals TAB PO SCH (09:06)
[2020-09-20] MEDS: Nicotine PATCH 21 MG/24 HR PATCH TRANSDERM SCH (09:07)
[2020-09-20] MEDS: Buprenorp/Nalox 8-2 MG FILM SL FILM SCH ×3 (09:07→20:46)
[2020-09-20] MEDS ORDERED: Polyethylene Glycol 3350 17 GM PACKET PO PRN (09:15)
[2020-09-20] MEDS ORDERED: Magnesium Hydroxide LIQ 30 ML UDC PO PRN (09:15)
[2020-09-20] MEDS ORDERED: Senna TAB 8.6 mg TAB PO PRN (09:15)
[2020-09-20] MEDS: Enoxaparin 40 MG/0.4 ML SYR SUBCUT SCH (13:38)
[2020-09-21 05:07] LABS: ABS Basophils 0.1 10^3/ul (0-0.2); ABS Eosinophils 0.7 10^3/ul (0-0.6); ABS Lymphocytes 1.9 10^3/ul (1.0-4.8); ABS Monocytes 0.7 10^3/ul (0-0.8); ABS Neutrophils 3.6 10^3/ul (1.5-7.7); Eosinophil % 10.3 %; Hematocrit 43 % (42-52); Hemoglobin 14.2 g/dL (14.0-18.0); Lymphocyte % 27.3 %; Mean Corpuscular HGB Conc 33 g/dL (31-36); Mean Corpuscular Hemoglobin 30 pg (27-31); Mean Corpuscular Volume 91 fL (80-94); Mean Platelet Volume 8.8 fL (7.4-10.4); Nucleated Red Blood Cells % 0.1; Platelet Count 265 10^3/uL (150-450); Red Blood Count 4.68 10^6 /uL (4.18-5.48); Red Cell Distribution Width 13 % (10-15)
[2020-09-21 05:26] LABS: Calcium 10.2 mg/dL (8.6-10.3); EGFR African American 112.9 (>60); EGFR Non-African American 93.3 (>60); Potassium 4.2 mmol/L (3.5-5.0)
[2020-09-21] MEDS: Multivitamins/Minerals TAB PO SCH (10:06)
[2020-09-21] MEDS: Nicotine PATCH 21 MG/24 HR PATCH TRANSDERM SCH (10:08)
[2020-09-21] MEDS: Buprenorp/Nalox 8-2 MG FILM SL FILM SCH ×3 (10:09→21:07)
[2020-09-21] MEDS: Enoxaparin 40 MG/0.4 ML SYR SUBCUT SCH (14:30)
[2020-09-22] MEDS: Nicotine PATCH 21 MG/24 HR PATCH TRANSDERM SCH (10:30)
[2020-09-22] MEDS: Buprenorp/Nalox 8-2 MG FILM SL FILM SCH ×3 (10:32→20:34)
[2020-09-22] MEDS: Multivitamins/Minerals TAB PO SCH (10:32)
[2020-09-22] MEDS: Enoxaparin 40 MG/0.4 ML SYR SUBCUT SCH (14:29)
[2020-09-23 06:08] LABS: ABS Basophils 0.1 10^3/ul (0-0.2); ABS Eosinophils 0.8 10^3/ul (0-0.6); ABS Lymphocytes 1.6 10^3/ul (1.0-4.8); ABS Monocytes 0.6 10^3/ul (0-0.8); ABS Neutrophils 3.7 10^3/ul (1.5-7.7); Eosinophil % 11.8 %; Hematocrit 40 % (42-52); Hemoglobin 13.3 g/dL (14.0-18.0); Lymphocyte % 23.8 %; Mean Corpuscular HGB Conc 33 g/dL (31-36); Mean Corpuscular Hemoglobin 31 pg (27-31); Mean Corpuscular Volume 91 fL (80-94); Mean Platelet Volume 8.7 fL (7.4-10.4); Nucleated Red Blood Cells % 0.1; Platelet Count 250 10^3/uL (150-450); Red Blood Count 4.35 10^6 /uL (4.18-5.48); Red Cell Distribution Width 13 % (10-15); White Blood Count 6.8 10^3/uL (3.5-10.8)
[2020-09-23 06:29] LABS: Calcium 9.9 mg/dL (8.6-10.3); EGFR African American 116.1 (>60); EGFR Non-African American 95.9 (>60); Magnesium 1.9 mg/dL (1.9-2.7); Potassium 4.1 mmol/L (3.5-5.0)
[2020-09-23] MEDS: Buprenorp/Nalox 8-2 MG FILM SL FILM SCH ×2 (08:41→14:13)
[2020-09-23] MEDS: Multivitamins/Minerals TAB PO SCH (08:41)
[2020-09-23] MEDS: Nicotine PATCH 21 MG/24 HR PATCH TRANSDERM SCH (08:44)
[2020-09-23] MEDS: Enoxaparin 40 MG/0.4 ML SYR SUBCUT SCH (14:13)
[2020-09-23] MEDS ORDERED: LORazepam 2 mg VIAL 1 ml IV PUSH ONE (16:51)
[2020-09-23] MEDS ORDERED: LORazepam 2 mg VIAL 1 ml IM ONE (17:11)
[2020-09-24] MEDS: Multivitamins/Minerals TAB PO SCH (08:33)
[2020-09-24] MEDS: Nicotine PATCH 21 MG/24 HR PATCH TRANSDERM SCH (08:40)
[2020-09-24] MEDS: Enoxaparin 40 MG/0.4 ML SYR SUBCUT SCH (14:16)
[2020-09-24] MEDS ORDERED: Senna TAB 8.6 mg TAB PO PRN (17:24)
[2020-09-25] MEDS: Multivitamins/Minerals TAB PO SCH (10:11)
[2020-09-25] MEDS: Nicotine PATCH 21 MG/24 HR PATCH TRANSDERM SCH (10:14)
[2020-09-25] MEDS: Enoxaparin 40 MG/0.4 ML SYR SUBCUT SCH (14:44)
[2020-09-26] MEDS: Multivitamins/Minerals TAB PO SCH (10:06)
[2020-09-26] MEDS: Nicotine PATCH 21 MG/24 HR PATCH TRANSDERM SCH (10:13)
[2020-09-26 12:11] VITALS: BP 135/72
== END 2020-09-26 11:50 | disposition home or self-care (01) | DRG 56 ==
LOC: ED 13:36 → MEDTELE 13:36
PROVIDERS: ADMIT Internal Medicine; ATTEND Internal Medicine

== ENCOUNTER 2020-11-17 16:31 | Observation (INO) ==
[2020-11-17] MEDS ORDERED: Lactated Ringers 1000 ml BAG 1,000 ML IV ONE (16:55)
[2020-11-17] MEDS ORDERED: Ondansetron 4 mg VIAL 2 MG/ML 2 ml VIAL IV ONE (16:57)
[2020-11-17 18:42] LABS: ABS Basophils 0.1 10^3/ul (0-0.2); ABS Eosinophils 0.2 10^3/ul (0-0.6); ABS Lymphocytes 1.8 10^3/ul (1.0-4.8); ABS Monocytes 0.9 10^3/ul (0-0.8); ABS Neutrophils 5.3 10^3/ul (1.5-7.7); Eosinophil % 2.9 %; Hematocrit 38 % (42-52); Hemoglobin 12.5 g/dL (14.0-18.0); Lymphocyte % 21.3 %; Mean Corpuscular HGB Conc 33 g/dL (31-36); Mean Corpuscular Hemoglobin 30 pg (27-31); Mean Corpuscular Volume 89 fL (80-94); Mean Platelet Volume 8.4 fL (7.4-10.4); Platelet Count 360 10^3/uL (150-450); Red Blood Count 4.21 10^6 /uL (4.18-5.48); Red Cell Distribution Width 15 % (10-15); White Blood Count 8.2 10^3/uL (3.5-10.8)
[2020-11-17 18:59] LABS: Troponin I 0.01 ng/mL (<0.03)
[2020-11-17 19:05] LABS: Albumin 4.5 g/dL (3.2-5.2); Albumin/Globulin Ratio 1.3 (1-3); Calcium 9.8 mg/dL (8.6-10.3); EGFR African American 73.1 (>60); EGFR Non-African American 60.4 (>60); Globulin 3.4 g/dL (2-4); Magnesium 1.9 mg/dL (1.9-2.7); Total Bilirubin 0.6 mg/dL (0.2-1.0); Total Protein 7.9 g/dL (6.4-8.9)
[2020-11-17] MEDS ORDERED: Iohexol 300 (CONTRAST) 10 ML SDV IV ONE (19:08)
[2020-11-17 19:09] LABS: Potassium 3.6 mmol/L (3.5-5.0)
[2020-11-17] MEDS ORDERED: LORazepam 2 mg VIAL 1 ml IM ONE ×2 (21:03→21:22)
[2020-11-17] MEDS ORDERED: Haloperidol 5 mg/ml SDV IV/IM 5 MG/ML AMP IM ONE ×2 (21:03→21:22)
[2020-11-17] MEDS ORDERED: Lorazepam PYXIS KEY PRN (21:22)
[2020-11-17] MEDS ORDERED: diPHENhydraMINE IV 50 MG/ML 1 ml VIAL (BENADRYL) IM ONE (21:44)
[2020-11-18] MEDS ORDERED: Fluticasone NASAL SPRAY 50MCG 16 gm SPRAY BTL BOTH NARES PRN (02:00)
[2020-11-18] MEDS ORDERED: Senna TAB 8.6 mg TAB PO PRN (02:00)
[2020-11-18 02:08] LABS: Urine Appearance Clear; Urine Bilirubin Negative (Negative); Urine Blood Negative (Negative); Urine Color Straw; Urine Glucose Negative (Negative); Urine Ketones Negative (Negative); Urine Nitrite Negative (Negative); Urine Protein Negative (Negative); Urine Specific Gravity 1.013 (1.002-1.030); Urine Urobilinogen Negative (Negative)
[2020-11-18 02:22] LABS: Urine Benzodiazepine Screen None Detected (None Detect); Urine Cannabinoids Screen None Detected (None Detect); Urine Opiates Screen None Detected (None Detect)
[2020-11-18] MEDS: Nicotine PATCH 21 MG/24 HR PATCH TRANSDERM SCH (08:32)
[2020-11-18 08:47] LABS: ABS Basophils 0.1 10^3/ul (0-0.2); ABS Eosinophils 0.2 10^3/ul (0-0.6); ABS Lymphocytes 1.5 10^3/ul (1.0-4.8); ABS Monocytes 0.8 10^3/ul (0-0.8); ABS Neutrophils 3.8 10^3/ul (1.5-7.7); Eosinophil % 3.9 %; Hematocrit 34 % (42-52); Hemoglobin 11.6 g/dL (14.0-18.0); Mean Corpuscular HGB Conc 34 g/dL (31-36); Mean Corpuscular Hemoglobin 30 pg (27-31); Mean Corpuscular Volume 88 fL (80-94); Mean Platelet Volume 8.3 fL (7.4-10.4); Platelet Count 283 10^3/uL (150-450); Red Blood Count 3.88 10^6 /uL (4.18-5.48); Red Cell Distribution Width 15 % (10-15); White Blood Count 6.4 10^3/uL (3.5-10.8)
[2020-11-18] MEDS: Multivitamins/Minerals TAB PO SCH (09:14)
[2020-11-18 09:43] LABS: Potassium 2.8 mmol/L (3.5-5.0)
[2020-11-18 09:48] LABS: EGFR African American 189.4 (>60); EGFR Non-African American 156.5 (>60)
[2020-11-18 13:02] LABS: EGFR Non-African American 81.8 (>60); Potassium 4.1 mmol/L (3.5-5.0)
[2020-11-20] MEDS: Nicotine PATCH 21 MG/24 HR PATCH TRANSDERM SCH ×2 (20:41→20:42)
[2020-11-20] MEDS: Multivitamins/Minerals TAB PO SCH ×2 (20:41→20:42)
[2020-11-20] MEDS ORDERED: Enoxaparin 40 MG/0.4 ML SYR SUBCUT SCH (23:45)
[2020-11-21] MEDS: Multivitamins/Minerals TAB PO SCH (08:52)
[2020-11-21] MEDS: Nicotine PATCH 21 MG/24 HR PATCH TRANSDERM SCH (08:53)
[2020-11-21 08:57] VITALS: BP 166/90
[2020-11-21] MEDS ORDERED: Polyethylene Glycol 3350 17 GM PACKET PO SCH (09:00)
== END 2020-11-18 14:49 | disposition home or self-care (01) ==
LOC: EDHOLD 16:31 → ED 16:31 → SUATTDRO 23:34 → EDHOLD 23:34 → INTOOBSV 23:34 → EDHOLD 11-18 13:57 → MED 11-20 17:55
PROVIDERS: ADMIT Internal Medicine; ATTEND Internal Medicine